=== PATIENT | male | born 1965 | race Caucasian/White ===

== ENCOUNTER 2016-06-17 16:36 | Emergency (ER) | payer BC ==
[~2016-06-17] VITALS: Ht 177.8 cm; Wt 85.0 kg
[2016-06-17 16:40] VITALS: BP 192/100; PULSE 98; RESP 24; TEMP 98.1; O2SAT 97
[2016-06-17] MEDS ORDERED: ceFAZolin INJ 1,000 MG VIAL IM ONE (17:15)
[2016-06-17] MEDS ORDERED: LIDOCAINE 1%/EPINEPHrine 1:100,000 SOLN 20 ML VIAL INFIL ONE (17:15)
--- NOTE | 2016-06-17 17:15 | PD ---
HPI Chief Complaint: Laceration/Skin Injury Time Seen by Provider: 17:11 Travel History International Travel<30 days: No Contact w/Intl Traveler<30days: No Traveled to known affect area: No History of Present Illness HPI Patient is a 51-year-old male presenting to the emergency department for evaluation of a laceration to his left knee. Patient states [place] fell [place] a dock approximately 20 minutes prior to arrival. Patient reports his last tetanus vaccine was in March 2016. He states his pain is an 8 out of 10 and describes it as throbbing. He denies any head injury, loss of consciousness, chest pain, back pain. PFSH Past Medical History Medical History: Denies Significant Hx Tetanus Vaccination: < 5 Years Social History Alcohol Use: Yes Tobacco Use: Yes Substance Use: No Allergies-Medications (Allergen,Severity, Reaction): Coded Allergies: No Known Allergies (Unverified , 06/17/16) Reported Meds & Prescriptions Reported Meds & Active Scripts Active Tramadol (Tramadol HCl) 50 Mg Tab 50 Mg PO Q6H PRN Keflex (Cephalexin) 500 Mg Cap 500 Mg PO Q12H 7 Days Review of Systems Except as stated in HPI: all other systems reviewed are Neg Musculoskeletal: Positive: Myalgias, Pain Skin: Positive Other (laceration) Physical Exam Narrative GENERAL: Well-nourished, well-developed patient. SKIN: Warm and dry. 5 cm laceration to the left knee on the medial aspect. Base of wound is well visualized, no bony involvement. HEAD: Normocephalic. EYES: No scleral icterus. No injection or drainage. NECK: Supple, trachea midline. No JVD or lymphadenopathy. CARDIOVASCULAR: Regular rate and rhythm without murmurs, gallops, or rubs. RESPIRATORY: Breath sounds equal bilaterally. No accessory muscle use. GASTROINTESTINAL: Abdomen soft, non-tender, nondistended. MUSCULOSKELETAL: No cyanosis, or edema. Full range of motion with flexion and extension of left knee. Positive pedal pulses, brisk less than 3 second capillary refill. 5/5 muscle strength in bilateral lower extremities. BACK: Nontender without obvious deformity. No CVA tenderness. Data Data Last Documented VS Vital Signs Date Time Temp Pulse Resp B/P Pulse Ox O2 Delivery O2 Flow Rate FiO2 06/17/16 18:34 85 22 177/94 98 Room Air 3/20/17 16:40 98.1 Orders Cefazolin Inj (Ancef Inj) (06/17/16 17:15) Lidocai-Epi 1%-1:100,000 Inj (Xylocaine- (06/17/16 17:15) ^ Knee Immobilizer (06/17/16 18:18) Crutches (06/17/16 18:18) MDM Medical Decision Making Medical Screen Exam Complete: Yes Emergency Medical Condition: Yes Interpretation(s) Vital Signs Date Time Temp Pulse Resp B/P Pulse Ox O2 Delivery O2 Flow Rate FiO2 06/17/16 16:40 98.1 98 24 192/100 97 Room Air Differential Diagnosis Laceration versus open fracture versus abrasion versus cellulitis versus other Narrative Course Patient is a 51-year-old male presenting to emergency for evaluation of a laceration to his left knee that occurred approximately 20 minutes prior to arrival. Patient's tetanus vaccine is up-to-date. Please see procedure report for laceration repair. Patient was given 1 g of Ancef IM in the emergency department prophylactically. Discussed signs and symptoms of infection with patient. He was advised that such as needed, out in 10 days. Patient was given a knee immobilizer and crutches, he was encouraged to rest, ice, elevate extremity. Patient verbalized understanding of these instructions. Patient was again strongly advised to return to emergency department any new or worsening symptoms. Patient's blood pressure was elevated on arrival, patient's blood pressure was reassessed and improved. Likely elevated secondary to pain. Patient was encouraged to continue monitoring his blood pressure at home, he was advised to return to emergency department if unable to follow-up with his primary doctor if his blood pressure remained elevated. He verbalized understanding of these instructions. Patient is stable for discharge. Procedures Procedure Narrative LACERATION LOCATION: Left knee LENGTH: 6 cm NUMBER OF STITCHES/AURELIO: 16 REPAIR: The area of the laceration was prepped with Betadine and sterilely draped. The laceration was infiltrated with 1% lidocaine with epi. The wound was copiously irrigated and explored without evidence of foreign body, tendon injury or neurovascular injury. The wound was closed using 3-0 Prolene. This was a 1 layer repair. A sterile dressing was applied. The patient was advised to keep the dressing clean and dry. Patient tolerated the procedure well. Diagnosis Primary Impression: Knee laceration Qualified Code: S81.012A - Knee laceration, left, initial encounter Additional Impression: Elevated blood pressure reading Referrals: Primary Care Physician 1 week Patient Instructions: 2 Gram Sodium Diet (GEN), General Instructions, Hypertension (ED), Knee Immobilizer (DC), Laceration (ED) Additional Instructions: Follow-up with your primary doctor Medications as directed Return to emergency department for any new or worsening symptoms Stitches will need to be removed in 10 days, this can be done in the emergency department or with a primary doctor. Her blood pressure was elevated in the emergency department, continue to monitor blood pressure at home and follow-up with your primary doctor Med/Other Pt SpecificInfo: Prescription(s) given Scripts Tramadol 50 Mg Tab50 Mg PO Q6H PRN (PAIN) #12 TAB Ref 0 Prov:Max Martins MD 06/17/16 Cephalexin (Keflex)500 Mg Coa756 Mg PO Q12H 7 Days Ref 0 Prov:Jacqueline Gonzalez 06/17/16 Disposition: 01 DISCHARGE HOME Condition: Stable Jacqueline Gonzalez Jun 17, 2016 17:15
[2016-06-17] MEDS ORDERED: CEPH-460 PO (18:20)
[2016-06-17] MEDS ORDERED: TRAM50TA PO (18:21)
[2016-06-17 18:34] VITALS: BP 177/94; PULSE 85; RESP 22; O2SAT 98
== END 2016-06-17 20:00 | disposition home or self-care (01) ==
LOC: NEPB 16:36
DX: S81.012A Laceration without foreign body, left knee, initial encounter (principal); R03.0 Elevated blood-pressure reading, without diagnosis of hypertension; Z72.0 Tobacco use; W19.XXXA Unspecified fall, initial encounter; Y92.89 Other specified places as the place of occurrence of the external cause
CPT/HCPCS: 12002; 96372; 99282; E0113; J0690; L1830